=== PATIENT | female | born 1945 | race Caucasian/White ===

== ENCOUNTER → 2018-03-31 | Outpatient (CLI) | payer MEDICARE ==
[2018-03-31 16:13] LABS: HCT 45.9 % (34.0-46.0); HGB 15.2 gm/dL (11.4-16.0); MCH 34.7 pg (25.0-35.0); MCHC 33.1 g/dL (31.0-37.0); MCV 104.7 fL (80.0-100.0); Macrocytosis Slight; Mean Platelet Volume 7.3; Platelet Count 269 k/uL (150-450); RBC 4.39 m/uL (3.80-5.40); RDW 12.3 % (11.5-15.5); WBC 4.7 k/uL (3.8-10.6)
[2018-03-31 16:15] LABS: Appearance,Urine Clear (Clear); Bilirubin,Urine Negative (Negative); Blood,Urine Negative (Negative); Color,Urine Yellow; Glucose,Urine (UA) Negative (Negative); Ketones,Urine Negative (Negative); Leukocyte Esterase,Urine Negative (Negative); Nitrite,Urine Negative (Negative); Protein,Urine Negative (Negative); Specific Gravity,Urine 1.006 (1.001-1.035); Urobilinogen,Urine <2.0 mg/dL (<2.0)
[2018-03-31 16:25] LABS: ALT 25 U/L (9-52); AST 24 U/L (14-36); Albumin 4.3 g/dL (3.5-5.0); Alkaline Phosphatase 76 U/L (38-126); Anion Gap 9 mmol/L; Blood Urea Nitrogen 14 mg/dL (7-17); Calcium 10.6 mg/dL (8.4-10.2); Carbon Dioxide 31 mmol/L (22-30); Chloride 103 mmol/L (98-107); Glucose 102 mg/dL (74-99); Potassium 3.8 mmol/L (3.5-5.1); Sodium 143 mmol/L (137-145); Total Bilirubin 0.4 mg/dL (0.2-1.3); Total Protein 6.7 g/dL (6.3-8.2)
[2018-03-31 16:27] LABS: Partial Thromboplastin Time 23.4 sec (22.0-30.0); Prothrombin Time 9.7 sec (9.0-12.0)
== END ==
LOC: LABPAT 15:14
PROVIDERS: ATTEND Orthopaedic Surgery
DX: Z01.812 Encounter for preprocedural laboratory examination (principal)
CPT/HCPCS: 36415; 80053; 81003; 85027; 85610; 85730; 86850; 86900; 86901; 87070

== ENCOUNTER 2018-04-13 10:36 | Emergency (ER) | payer MEDICARE ==
--- NOTE | 2018-04-13 11:11 | ED ---
Extremity Problem HPI - General Chief complaint: Extremity Problem,Nontraumatic Stated complaint: lt leg swelling Time Seen by Provider: 04/13/18 10:48 Source: patient, RN notes reviewed Mode of arrival: wheelchair Limitations: no limitations - History of Present Illness Initial comments: 72-year-old female presented emergency from chief complaint of left leg swelling. Patient was sent by orthopedic physician for ultrasound rule out DVT. Patient is scheduled for left hip replacement. Patient denies any chest pain or shortness of breath. Patient had recent heart cath which show no acute abnormality. Patient states that there is no paresthesia to her leg. - Related Data Home Medications Medication Instructions Recorded Confirmed Atorvastatin Calcium [Lipitor] 10 mg PO DAILY 04/01/18 04/01/18 Biotin 100 mcg PO DAILY 04/01/18 04/01/18 Calcium Carbonate/Vitamin D3 1 each PO DAILY 04/01/18 04/01/18 [Calcium 600-Vit D3 200 Tablet] Glucosam/Nicola-Msm1/C/Robert/Bosw 1 each PO DAILY 04/01/18 04/01/18 [Glucosamine-Chondroitin Tablet] Multivit-Min/Iron/Folic/Lutein 1 each PO DAILY 04/01/18 04/01/18 [Centrum Silver Women Tablet] Allergies Allergy/AdvReac Type Severity Reaction Status Date / Time nickel Allergy Rash/Hives Verified 04/01/18 15:24 Review of Systems ROS Statement: Those systems with pertinent positive or pertinent negative responses have been documented in the HPI. ROS Other: All systems not noted in ROS Statement are negative. Past Medical History Past Medical History: No Reported History History of Any Multi-Drug Resistant Organisms: None Reported Past Surgical History: Section, Orthopedic Surgery Additional Past Surgical History / Comment(s): r wrist Past Psychological History: No Psychological Hx Reported Smoking Status: Current every day smoker Past Alcohol Use History: Occasional Past Drug Use History: None Reported General Exam Limitations: no limitations General appearance: alert, in no apparent distress Respiratory exam: Present: normal lung sounds bilaterally. Absent: respiratory distress, wheezes, rales, rhonchi, stridor Cardiovascular Exam: Present: regular rate, normal rhythm, normal heart sounds. Absent: systolic murmur, diastolic murmur, rubs, gallop, clicks Extremities exam: Present: other (Mild left leg swelling no tenderness pedal pulses equal bilaterally) Skin exam: Present: warm, dry, intact, normal color. Absent: rash Course Vital Signs 04/13/18 10:38 Temperature 97.8 F Pulse Rate 62 Respiratory 16 Rate Blood Pressure 137/80 O2 Sat by Pulse 97 Oximetry Medical Decision Making - Medical Decision Making 72-year-old female presented emergency Department from orthopedics office to rule out DVT. Patient ultrasound of the left lower extremity is negative for acute DVT. Patient will follow-up with her orthopedic surgeon return for any worsening symptoms. Disposition Clinical Impression: Left leg swelling Disposition: HOME SELF-CARE Condition: Stable Instructions: Leg Edema (ED) Additional Instructions: Please return to the Emergency Department if symptoms worsen or any other concerns. Is patient prescribed a controlled substance at d/c from ED?: No Referrals: Saravanan Howard DO [Primary Care Provider] - 1-2 days Time of Disposition: 12:32
--- NOTE | 2018-04-13 12:26 | US ---
EXAMINATION TYPE: US venous doppler duplex LE LT DATE OF EXAM: 04/13/2018 11:55 AM COMPARISON: NONE CLINICAL HISTORY: 72-year-old female with Pain. Left leg swelling. No redness. Patient states she i s getting a hip replacement end of April. No hx of blood clots or on blood thinners. SIDE PERFORMED: Left TECHNIQUE: The lower extremity deep venous system is examined utilizing real time linear array sonog anoop with graded compression, doppler sonography and color-flow sonography. FINDINGS: VESSELS IMAGED: External Iliac Vein (EIV) Common Femoral Vein Deep Femoral Vein Greater Saphenous Vein * Femoral Vein Popliteal Vein Small Saphenous Vein * Proximal Calf Veins (* superficial vessels) Left Leg: Negative for DVT IMPRESSION: No evidence for DVT within the left lower extremity imaged from the groin to the upper calf.
[2018-04-13 12:44] VITALS: BP 120/58; PULSE 70; RESP 18; TEMP 97.2
== END 2018-04-13 12:40 | disposition home or self-care (01) ==
LOC: EC 10:36
DX: M79.89 Other specified soft tissue disorders (principal); F17.200 Nicotine dependence, unspecified, uncomplicated; Z79.899 Other long term (current) drug therapy; Z91.048 Other nonmedicinal substance allergy status
CPT/HCPCS: 99283

== ENCOUNTER → 2018-05-06 | Outpatient (CLI) | payer MEDICARE ==
[2018-05-06 15:40] LABS: HCT 45.6 % (34.0-46.0); HGB 14.9 gm/dL (11.4-16.0); MCH 34.1 pg (25.0-35.0); MCHC 32.8 g/dL (31.0-37.0); MCV 103.9 fL (80.0-100.0); Macrocytosis Slight; Mean Platelet Volume 6.8; Platelet Count 286 k/uL (150-450); RBC 4.39 m/uL (3.80-5.40); RDW 11.9 % (11.5-15.5); WBC 5.5 k/uL (3.8-10.6)
[2018-05-06 15:50] LABS: Partial Thromboplastin Time 24.8 sec (22.0-30.0); Prothrombin Time 9.8 sec (9.0-12.0)
[2018-05-06 15:59] LABS: ALT 28 U/L (9-52); AST 24 U/L (14-36); Albumin 4.2 g/dL (3.5-5.0); Alkaline Phosphatase 81 U/L (38-126); Anion Gap 8 mmol/L; Blood Urea Nitrogen 16 mg/dL (7-17); Calcium 10.2 mg/dL (8.4-10.2); Carbon Dioxide 27 mmol/L (22-30); Chloride 106 mmol/L (98-107); Glucose 115 mg/dL (74-99); Sodium 141 mmol/L (137-145); Total Bilirubin 0.4 mg/dL (0.2-1.3); Total Protein 6.5 g/dL (6.3-8.2)
[2018-05-06 17:22] LABS: Appearance,Urine Cloudy (Clear); Bacteria,Urine Rare /hpf; Bilirubin,Urine Negative (Negative); Blood,Urine Negative (Negative); Calcium Oxalate Crystals,Urine Few /hpf; Color,Urine Yellow; Glucose,Urine (UA) Negative (Negative); Hyaline Casts,Urine 1 /lpf (0-2); Ketones,Urine Negative (Negative); Leukocyte Esterase,Urine Negative (Negative); Mucus,Urine Rare /hpf; Nitrite,Urine Negative (Negative); PH, Urine 5.5 (5.0-8.0); Protein,Urine Negative (Negative); RBC,Urine 9 /hpf (0-5); Specific Gravity,Urine 1.018 (1.001-1.035); Squamous Epithelial Cell,Urine 7 /hpf (0-4); Urobilinogen,Urine <2.0 mg/dL (<2.0); WBC,Urine 2 /hpf (0-5)
== END | disposition home or self-care (01) ==
LOC: LABWHC1 14:25
PROVIDERS: ATTEND Orthopaedic Surgery
DX: Z01.818 Encounter for other preprocedural examination (principal); Z01.812 Encounter for preprocedural laboratory examination
CPT/HCPCS: 36415; 80053; 81001; 85027; 85610; 85730; 93005

== ENCOUNTER 2018-05-17 10:04 | Inpatient (IN) | payer MEDICARE ==
[~2018-05-17 10:04] MED LIST: ACETAMINOPHEN TAB 500 MG TAB PO ONE; DEXAMETHASONE SOD PHOSPHATE 10 MG/ML 1 ML VIAL IV ONE; HYDROmorphone 1 MG/ML 1 ML SYRINGE IVP PRN; LIDOCAINE 1% 20 ML VIAL (10MG/ML) FOR IV START INTRADERMA PRN; MELOXICAM 7.5 MG TAB PO ONE; MIDAZOLAM 2 MG/2 ML VIAL IV PRN; ONDANSETRON 4 MG/2 ML VIAL IVP ONE; ROPIVACAINE 246.25 MG, EPINEPHrine 0.5 MG, KETOROLAC 30 MG, cloNIDine HCL/PF 80 MCG, WA... MISCELLANE ONE; TRANEXAMIC ACID 1,000 MG in SODIUM CHLORIDE 0.9% 50 ML IVPB ONE; ceFAZolin IN SWFI 2 GM/20 ML SYRINGE IVP ONE
[2018-05-17] MEDS: LACTATED RINGERS 1,000 ML IV SCH (10:36)
[2018-05-17] MEDS ORDERED: LACTATED RINGERS 1,000 ML IV ONE (12:38)
[2018-05-17] MEDS ORDERED: ceFAZolin 3,000 MG in SODIUM CHLORIDE 0.9% IRRIGATIO 3,000 ML IRRIGATION ONE (12:39)
--- NOTE | 2018-05-17 13:36 | P.OP ---
Date of Procedure: 05/17/18 Preoperative Diagnosis: Severe osteoarthritis left hip Postoperative Diagnosis: Severe osteoarthritis left hip Procedure(s) Performed: Left total hip arthroplasty with a direct anterior approach Implants: Dobbs and nephew Polarstem size 2 standard Dobbs & Nephew R3, 3 hole acetabular shell, 48 mm Dobbs & Nephew reflection 6.5 mm cancellus screw, 20 mm 3 Dobbs [employer] Nephew R3, XLPE 20 acetabular liner Dobbs & Nephew Oxinium femoral head 32 m, -3 All components were press-fit. The articulation is Oxinium on polyethylene. Anesthesia: spinal Surgeon: Marcelino Pagan Marketing Designer #1: Sophie Dickens Estimated Blood Loss (ml): 120 (50 mL returned with Cell Saver) Pathology: other (Femoral head) Condition: stable Disposition: PACU Indications for Procedure: After failure of conservative treatment we discussed the surgical and nonsurgical treatment options at length. Patient wishes to proceed with a total hip arthroplasty with a direct anterior approach. Complications specific to this procedure were discussed at length, including but not limited to infection, leg length discrepancy, dislocation, and nerve injury. Patient is aware of all these complications and informed consent was obtained Operative Findings: The operative findings are consistent with severe osteoarthritis the left hip Description of Procedure: Patient was seen and evaluated in the preoperative area, consent was reviewed, and the surgical site was marked with a skin marker. Patient was then brought to the operating room and given prophylactic antibiotics intravenously. 1 g of Tranexamic acid was also given. A spinal anesthetic was administered by the anesthesia department. The patient was then placed on the [place] table with the bony prominences well-padded. The hip area was then prepped and draped in usual sterile fashion. A universal timeout was then performed, which confirmed the patient's name, surgical site, ALLERGIES, and procedure being performed. Next the incision site was located at 1 cm distal and 1 cm lateral to the anterior superior iliac spine. The skin and subcutaneous tissues were sharply incised. Incision was carefully dissected down to the fascia overlying the tensor fascia erin muscle. This fascia was then incised in line with the incision. Next, using blunt finger dissection, the tensor fascia erin muscle was dissected off its investing fascia. The muscle was then carefully retracted laterally with a cobra retractor over the lateral neck of the femur. Next, the circumflex vessels were identified and cauterized using the AquaMantis device. The anterior hip capsule was then exposed. The capsule was then opened and an inverted T fashion. Cobra retractors were then placed intracapsularly. The proximal femur was then visualized. The femoral neck was then osteotomized appropriate level above the lesser trochanter. Small amount of traction was placed with the [place] table. A small wedge of bone was then removed from the remaining femoral head. Next, using a corkscrew femoral head was easily removed from the acetabulum. On gross visual inspection, the femoral head had complete loss of articular cartilage in multiple periarticular osteophytes. Attention was then turned to the acetabulum. the acetabulum was exposed and any remaining labrum was excised. Sequential reaming of the acetabulum was performed using fluoroscopic guidance. When the appropriate size was reached, a trial was then placed. The position and fit of the trial was checked with fluoroscopy. The trial was then removed. Then, using fluoroscopic guidance, the final implant was impacted at 20 of anteversion and 40 of abduction, and fully seated in the acetabulum. 3 screws were then placed in the acetabulum. Again fluoroscopy was used to check position of the screws. Next, the liner was then impacted, with a 20 elevated liner located in the anterior superior quadrant. Component locking was confirmed. Attention was then directed to the femur. With the aid of the [place] table, the femur was externally rotated to approximately 130, extended, and abducted under the opposite leg. A side hook was then placed under the proximal femur, and the side hook elevator was used to elevate the proximal femur. Retractors were then placed. A capsular release was performed, as well as a release of the conjoined tendon, which afforded excellent visualization of the proximal femur. Next, a box osteotome was used to lateralize the proximal femur. A washhouse hand was then used to locate the femoral canal. Sequential broaching was then performed with appropriate size which afforded excellent fixation in the proximal femur. A trial was then placed with appropriate head and neck, and the hip was gently reduced with the aid of the [place] table. Fluoroscopy was then used to check position of the components, as well as to ensure equal leg lengths. The hip was then gently dislocated and the trials were then removed. Final implants were then impacted and the hip was again reduced. Final fluoroscopic x-rays confirmed that the components were in anatomic position, as well as equal leg lengths. The hip was also taken through range of motion, and found to be stable. The hip was then copiously irrigated with antibiotic solution with pulsatile lavage. The hip was then irrigated with Irrisept solution. The soft tissues were then injected with a ropivacaine solution, which consisted of 246.25 mg of ropivacaine, 0.5 mg of epinephrine, 30 mg of Toradol, 80 g of clonidine, and 48.45 mL of sterile water, for a total of 100 mL of fluid injected. A second dose of 1 g of Tranexamic acid was also given. the fascia was then closed with 2-0 strata fix suture. The subcutaneous tissue was closed with 3-0 Vicryl. The subcuticular tissue was closed with 3-0 strata fix suture. The skin was then closed with Dermabond glue and a sterile silver dressing. The patient was then transferred to the recovery room in stable condition. The rehabilitation assistant RONEY Aguillon was required due to the complexity of surgery, and the need for skilled paraprofessional education assistant for positioning, draping, exposure, retraction, and closure of the wound.
[2018-05-17] MEDS ORDERED: MAGNESIUM HYDROXIDE 2,400 MG/10 ML CUP PO PRN (13:43)
[2018-05-17] MEDS ORDERED: HYDROcodone/APAP 7.5-325MG 1 EACH TAB PO PRN (13:43)
[2018-05-17] MEDS ORDERED: NALOXONE 0.4 MG/ML 1 ML VIAL IV PRN (13:43)
[2018-05-17] MEDS ORDERED: DIAZEPAM 5 MG TAB PO PRN (13:43)
[2018-05-17] MEDS ORDERED: ONDANSETRON 4 MG/2 ML VIAL IVP PRN (13:43)
[2018-05-17] MEDS ORDERED: HYDROmorphone 1 MG/ML 1 ML SYRINGE IVP PRN ×3 (13:43)
[2018-05-17] MEDS ORDERED: hydrOXYzine PAMOATE 25 MG CAP PO PRN (13:43)
--- NOTE | 2018-05-17 13:45 | XR ---
EXAMINATION TYPE: XR Hip Limited LT, FL guidance operating room DATE OF EXAM: 05/17/2018 CLINICAL HISTORY: Left hip arthroplasty. Prior left hip pain. Fluoroscopic documentation. TECHNIQUE: Fluoroscopy. COMPARISON: None. FINDINGS/IMPRESSION: Fluoroscopic guidance was provided during procedure performed by Dr. Pagan. A total of 51 seconds of fluoroscopic time was utilized during the procedure and 2 spot images was acquired.
--- NOTE | 2018-05-17 16:01 | XR ---
EXAMINATION TYPE: XR Hip Limited LT DATE OF EXAM: 05/17/2018 CLINICAL HISTORY: Left hip arthroplasty alignment. TECHNIQUE: Single AP portable view of left hip is obtained immediately postoperatively. COMPARISON: None. FINDINGS: Metallic hardware from left hip arthroplasty is seen and appears satisfactory in alignment and position. There is evidence of recent surgery with subcutaneous gas noted laterally. IMPRESSION: Metallic hardware from left hip arthroplasty is satisfactory in position.
[2018-05-17] MEDS: HYDROcodone/APAP 7.5-325MG 1 EACH TAB PO PRN (19:20)
[2018-05-17] MEDS: SODIUM CHLORIDE 0.9% 1,000 ML IV SCH (19:21)
[2018-05-17 20:04] VITALS: BMI 19.3
[2018-05-17] MEDS ORDERED: SENNOSIDES-DOCUSATE SODIUM 1 EACH TAB PO SCH (21:00)
[2018-05-17] MEDS: ASPIRIN 325 MG TAB PO SCH (21:26)
[2018-05-17] MEDS: ceFAZolin IN SWFI 2 GM/20 ML SYRINGE IVP SCH (21:28)
[2018-05-17] MEDS ORDERED: NICOTINE 21MG/24HR PATCH TRANSDERM SCH (22:15)
[2018-05-17] MEDS ORDERED: NICOTINE 7MG/24HR PATCH TRANSDERM SCH (22:30)
--- NOTE | 2018-05-18 00:07 | CONS ---
CONSULTATION DATE OF SERVICE: 05/17/2018 REASON FOR CONSULTATION: Medical management requested by Dr. Pagan. CONSULTATION: This is a very pleasant 72-year-old patient of Dr. Howard who has undergone left total hip arthroplasty. Postprocedure, no chest pain or short of breath. No nausea, vomiting. No dizziness. No lightheadedness. Sitting up. Did tolerate his supper. Chronic stable medical conditions include hyperlipidemia, nicotine dependence, mild cognitive impairment, and osteoarthritis. REVIEW OF SYSTEMS: CONSTITUTIONAL: None. HEENT: None. CARDIOVASCULAR: None. GASTROINTESTINAL none. GENITOURINARY: None. MUSCULOSKELETAL: Arthritic pain in many joints. DERMATOLOGICAL: None. HEMATOLOGICAL: None. LYMPHATICS: PSYCHIATRY: Slightly forgetful. NEUROLOGICAL none. PAST MEDICAL HISTORY: Of hyperlipidemia, mild cognitive impairment, osteoarthritis, nicotine dependence. PAST SURGICAL HISTORY: cardiac catheterization, ORIF of the right wrist. SOCIAL HISTORY: Patient is smoking a pack a day for last 55 years. Alcohol occasionally. . FAMILY HISTORY: Skin cancer. HOME MEDICATIONS: Centrum Silver 1 tablet p.o. daily, [employer] 7.5 one tab q.6h 4-6 p.r.n. glucosamine chondroitin 1 tablet p.o. daily. Calcium vitamin D 1 tablet p.o. daily. Biotin 3 mcg p.o. daily Lipitor 10 mg p.o. daily. ALLERGIES: NICKEL. PHYSICAL EXAMINATION: VITAL SIGNS: Temperature 98.2, pulse 72, respiratory 18, blood pressure 100/62, pulse ox 94% on room air. GENERAL APPEARANCE: Thin build, sitting up comfortable. EYES: Pupils equal. Conjunctivae normal. HEENT external appearance of nose and ears normal. Oral cavity normal. NECK: JVD not raised palpable. Respiratory effort normal. LUNGS: Slightly decreased breath sounds. CARDIOVASCULAR: 1st and 2nd sounds normal. No edema. ABDOMEN: Soft, nontender. Liver and spleen not palpable. LYMPHATICS: No lymph nodes palpable in the neck and axillae. PSYCHIATRY: Alert and oriented times three. Mood and affect normal. NEUROLOGICAL: Pupils equal. Cranial nerves grossly intact. MUSCULOSKELETAL: Dressing over the left hip. Evidence of osteoarthritis in the joints including the hands. INVESTIGATIONS: Blood work from 05/06/2018 shows a white count of 5.5, hemoglobin 14.9, potassium 4.0. BUN and creatinine normal. ASSESSMENT: 1. Left total hip arthroplasty. 2. Primary osteoarthritis multiple joints bilateral. 3. Mild cognitive impairment. 4. Hyperlipidemia. 5. Chronic nicotine dependence patient is a cigarette smoker. The patient is now down to a few cigarettes a day cigarettes a day. PLAN: The patient's pain control is in place. Getting aspirin 325 p.o. b.i.d. for DVT prophylaxis. Other home medications are resumed. The patient will be started on nicotine patch. Care was discussed with the patient. Questions were answered. Thank you Dr. Pagan. Copy to Dr. Howard. DYANA / KRISTY: [id number] /
[2018-05-18] MEDS: HYDROcodone/APAP 7.5-325MG 1 EACH TAB PO PRN ×2 (01:08→08:00)
[2018-05-18 01:18] VITALS: TEMP 98.3
[2018-05-18] MEDS: ceFAZolin IN SWFI 2 GM/20 ML SYRINGE IVP SCH (04:08)
[2018-05-18] MEDS: SODIUM CHLORIDE 0.9% 1,000 ML IV SCH (04:08)
[2018-05-18] MEDS: LACTATED RINGERS 1,000 ML IV SCH (04:10)
[2018-05-18 07:47] VITALS: BP 99/50; PULSE 64; RESP 16
[2018-05-18] MEDS: ASPIRIN 325 MG TAB PO SCH (08:00)
[2018-05-18] MEDS ORDERED: ATORVASTATIN 10 MG TAB PO SCH (09:00)
[2018-05-18] MEDS ORDERED: MELOXICAM 7.5 MG TAB PO SCH (09:00)
--- NOTE | 2018-05-18 09:20 | P.DS ---
Providers Date of admission: 05/17/18 10:04 Expected date of discharge: 05/18/18 Attending physician: Marcelino Pagan Consults: 05/17/18 13:43 Consult Physician Routine Consulting Provider: Cj Ni Consult Reason/Comments: medical management Do you want consulting provider notified?: Yes Primary care physician: Saravanan Fernandezeldor - Discharge Diagnosis(es) (1) Avascular necrosis of bone of left hip Current Visit: Yes Status: Acute (2) S/P total hip arthroplasty Current Visit: Yes Status: Acute Hospital Course: This is a 72-year-old female with known history of avascular necrosis of the left hip. The patient presents for evaluation. After discussion and consideration patient elects to proceed with total hip arthroplasty. The patient is seen preoperatively by Dr. Pagan and medically cleared for surgery by their primary care physician. Patient is [facility] to [facility] on 05/17/2018 for total hip arthroplasty. The procedures performed without complication or sequelae. The patient is doing well postoperatively. Labs and vital signs are stable on day of discharge. On day of discharge patient's hip incision is healing well. There is minimal erythema. There is no drainage noted at this time. There is minimal soft tissue swelling to the hip and thigh. Patient has full foot and ankle motion without difficulty or pain. Neurovascular status to the left lower extremity is intact. Patient is discharged home in good condition. Please see med rec for accurate list of home medications. Plan - Discharge Summary Discharge Rx Participant: Yes New Discharge Prescriptions: New Aspirin 325 mg PO BID #60 tab HYDROcodone/APAP 7.5-325MG [Conde 7.5-325] 1 - 2 tab PO Q4-6H PRN #84 tab PRN Reason: Pain Sennosides [Senokot] 1 tab PO BID #60 tablet No Action Multivit-Min/Iron/Folic/Lutein [Centrum Silver Women Tablet] 1 tab PO DAILY Glucosam/Nicola-Msm1/C/Robert/Bosw [Glucosamine-Chondroitin Tablet] 1 tab PO DAILY Calcium Carbonate/Vitamin D3 [Calcium 600-Vit D3 200 Tablet] 1 tab PO DAILY Atorvastatin Calcium [Lipitor] 10 mg PO DAILY Biotin 300 mcg PO DAILY HYDROcodone/APAP 7.5-325MG [Conde 7.5-325] 1 tab PO Q4-6H PRN PRN Reason: Pain Discharge Medication List Atorvastatin Calcium [Lipitor] 10 mg PO DAILY 04/01/18 [History] Biotin 300 mcg PO DAILY 04/01/18 [History] Calcium Carbonate/Vitamin D3 [Calcium 600-Vit D3 200 Tablet] 1 tab PO DAILY [History] Glucosam/Nicola-Msm1/C/Robert/Bosw [Glucosamine-Chondroitin Tablet] 1 tab PO DAILY 04/01/18 [History] Multivit-Min/Iron/Folic/Lutein [Centrum Silver Women Tablet] 1 tab PO DAILY [History] HYDROcodone/APAP 7.5-325MG [Conde 7.5-325] 1 tab PO Q4-6H PRN 05/10/18 [History] Aspirin 325 mg PO BID #60 tab 05/18/18 [Rx] HYDROcodone/APAP 7.5-325MG [Conde 7.5-325] 1 - 2 tab PO Q4-6H PRN #84 tab [Rx] Sennosides [Senokot] 1 tab PO BID #60 tablet 05/18/18 [Rx] Follow up Appointment(s)/Referral(s): Marcelino Pagan DO [Doctor of Osteopathic Medicine] - 2 Weeks Activity/Diet/Wound Care/Special Instructions: Weightbearing as tolerated with walker. Leave dressing intact. Dressing may be removed by home care nurse in 10 days. May shower with dressing on. Follow-up with [facility] in 2 weeks, please call with any questions or concerns [phone]. Discharge Disposition: HOME WITH HOME HEALTH SERVICES
[2018-05-18 09:39] LABS: Basophils % (A) 0 %; Eosinophils % (A) 0 %; HCT 33.6 % (34.0-46.0); Lymphocytes # (A) 1.6 k/uL (1.0-4.8); Lymphocytes % (A) 16 %; MCH 33.5 pg (25.0-35.0); MCHC 32.4 g/dL (31.0-37.0); MCV 103.3 fL (80.0-100.0); Macrocytosis Slight; Mean Platelet Volume 7.4; Monocytes # (A) 0.5 k/uL (0-1.0); Monocytes % (A) 5 %; Neutrophils # (A) 7.4 k/uL (1.3-7.7); Neutrophils % (A) 77 %; Platelet Count 217 k/uL (150-450); RBC 3.26 m/uL (3.80-5.40); RDW 12.1 % (11.5-15.5); WBC 9.6 k/uL (3.8-10.6)
[2018-05-18 09:44] LABS: HGB 10.9 gm/dL (11.4-16.0)
--- NOTE | 2018-05-18 23:50 | PN ---
PROGRESS NOTE DATE OF SERVICE: 05/18/2018 INTERVAL HISTORY: Patient is status post left total hip arthroplasty, doing well. Pain is controlled. Did tolerate a meal. Did work with Physical Therapy. No new issues. No fever. No chills. REVIEW OF SYSTEMS: Done for constitutional, cardiovascular, GI, pulmonary; relevant findings as above. CURRENT MEDICATIONS: Reviewed. PHYSICAL EXAMINATION: Temperature 98.3, pulse 64, respiration 16, blood pressure 99/50, pulse ox 95% on room air. GENERAL APPEARANCE: Sitting up, comfortable. EYES: Pupils equal. Conjunctivae normal. HEENT: External appearance of nose and ears normal. Oral cavity normal. NECK: JVD not raised. Mass not palpable. RESPIRATORY: Effort normal. LUNGS: Decreased breath sounds. CARDIOVASCULAR: First and second sounds normal. No edema. ABDOMEN: Soft, non-tender. Liver and spleen not palpable. PSYCHIATRY: Alert and oriented x3. Mood and affect normal. INVESTIGATIONS: Hemoglobin 10.9. ASSESSMENT: 1. Left total hip arthroplasty. 2. Primary osteoarthritis in multiple joints, bilateral. 3. Mild cognitive impairment. 4. Hyperlipidemia. 5. Chronic nicotine dependence. Patient is a cigarette smoker. 6. Acute blood loss anemia, expected from surgery. PLAN: Patient is doing well. If discharged, should follow up with the family doctor. MMODL / IJN: [id number] /
== END 2018-05-18 15:23 | disposition home health service (06) | DRG 470 ==
LOC: 2ORMAIN 10:04 → 4SSUR 13:35
PROVIDERS: ADMIT Orthopaedic Surgery; ATTEND Orthopaedic Surgery
PROC: 30233N0 Transfusion of Autologous Red Blood Cells into Peripheral Vein, Percutaneous Approach (ICD-10-PCS; 2018-05-17)
PROC: 0SRB06A Replacement of Left Hip Joint with Oxidized Zirconium on Polyethylene Synthetic Substitute, Uncemented, Open Approach (ICD-10-PCS; principal; 2018-05-17 12:00)
DX: M87.052 Idiopathic aseptic necrosis of left femur (principal); D62 Acute posthemorrhagic anemia; M16.12 Unilateral primary osteoarthritis, left hip; E78.2 Mixed hyperlipidemia; G31.84 Mild cognitive impairment of uncertain or unknown etiology; F17.210 Nicotine dependence, cigarettes, uncomplicated; Z71.6 Tobacco abuse counseling; Z79.899 Other long term (current) drug therapy; Z98.891 History of uterine scar from previous surgery; Z98.51 Tubal ligation status; Z80.8 Family history of malignant neoplasm of other organs or systems; Z82.49 Family history of ischemic heart disease and other diseases of the circulatory system
CPT/HCPCS: 73501; 85025; 86850; 86891; 86900; 86901; 88305; 88311